=== PATIENT | male | born 1985 | race Two or more races ===

== ENCOUNTER 2020-02-09 14:38 | Emergency (ER) | payer OTHER ==
[2020-02-09 14:45] VITALS: TEMP 97.7
[2020-02-09] MEDS ORDERED: KETOROLAC 15 MG/ML 1 ML VIAL IM STA (15:09)
[2020-02-09] MEDS ORDERED: HYDROcodone/APAP 5-325MG 1 EACH TAB PO STA (15:09)
--- NOTE | 2020-02-09 15:10 | ED ---
Recheck HPI - General Chief Complaint: Extremity Injury, Lower Stated Complaint: Fall,Foot injury Time Seen by Provider: 02/09/20 14:53 Source: patient, RN notes reviewed, old records reviewed Mode of arrival: wheelchair Limitations: no limitations - History of Present Illness Initial Comments: This is a 34-year-old male DF for evaluation regards to significant right ankle pain. Seen in ER yesterday for similar complaint associated ankle sprain, patient comes in for worsening pain today worsening swelling. Original injury was jumping off a ladder landing on his right foot no other injuries noted. Patient was not and has not been able lay on the right lower extremity he is complaining of severe pain MD Complaint: other (Recheck of right ankle pain) -: days(s) Returns Today for: persistent/worsening pain related to initial visit Symptoms Since Prior Visit: worsening pain Associated Symptoms: none - Related Data Previous Rx's Medication Instructions Recorded HYDROcodone/APAP 5-325MG [[place] 5] 1 each PO Q4HR PRN #20 tab 04/23/15 Naproxen [Naprosyn] 500 mg PO Q12HR PRN #20 tab 04/23/15 Penicillin V Potassium [Pen Vee K] 500 mg PO QID #28 tab 04/23/15 Allergies Allergy/AdvReac Type Severity Reaction Status Date / Time No Known Allergies Allergy Verified 02/09/20 14:45 Review of Systems ROS Statement: Those systems with pertinent positive or pertinent negative responses have been documented in the HPI. ROS Other: All systems not noted in ROS Statement are negative. Past Medical History Past Medical History: No Reported History Additional Past Medical History / Comment(s): chronic back and neck pain History of Any Multi-Drug Resistant Organisms: None Reported Past Surgical History: No Surgical Hx Reported Additional Past Surgical History / Comment(s): jaw surgery Past Psychological History: No Psychological Hx Reported Smoking Status: Current every day smoker Past Alcohol Use History: Occasional Past Drug Use History: Marijuana General Exam Limitations: no limitations General appearance: alert, in no apparent distress Head exam: Present: atraumatic, normocephalic, normal inspection Eye exam: Present: normal appearance, PERRL, EOMI. Absent: scleral icterus, conjunctival injection, periorbital swelling ENT exam: Present: normal exam, mucous membranes moist Neck exam: Present: normal inspection. Absent: tenderness, meningismus, lymphadenopathy Respiratory exam: Present: normal lung sounds bilaterally. Absent: respiratory distress, wheezes, rales, rhonchi, stridor Cardiovascular Exam: Present: regular rate, normal rhythm, normal heart sounds. Absent: systolic murmur, diastolic murmur, rubs, gallop, clicks GI/Abdominal exam: Present: soft, normal bowel sounds. Absent: distended, tenderness, guarding, rebound, rigid Extremities exam: Present: other (Significant right ankle edema swelling displacement, deformity). Absent: tenderness, pedal edema, joint swelling, calf tenderness Back exam: Present: normal inspection Neurological exam: Present: alert, oriented X3, CN II-XII intact Psychiatric exam: Present: normal affect, normal mood Skin exam: Present: warm, dry, intact, normal color. Absent: rash Course Vital Signs 02/09/20 14:41 Temperature 97.7 F Pulse Rate 97 Respiratory 20 Rate Blood Pressure 135/68 O2 Sat by Pulse 99 Oximetry - Reevaluation(s) Reevaluation #1: 02/09/20 16:27 medical records reviewed Reevaluation #2: 02/09/20 16:27 Patient has pain control Reevaluation #3: 02/09/20 16:27 Patient informed us findings and results need for transfer, he is agreeable - Consultations Consultation #1: Spoke with Dr. Sera Mercado TRANSFER, spoke with emergency department okay for transfer Medical Decision Making - Medical Decision Making 34 male DF with right talus fracture dislocated and displaced patient will be transferred for [facility] for treatment - EKG Data -: EKG Interpreted by Me (EKG is sinus rhythm 81 [place] 144 QRS 90 QTC 436) - Radiology Data Radiology results: report reviewed (X-rays of right lower extremity right ankle does show right talus fracture with displacement), image reviewed Disposition Clinical Impression: Fracture of right talus Disposition: OTHER INSTITUTION NOT DEFINED Condition: Fair Is patient prescribed a controlled substance at d/c from ED?: No Referrals: Roma Church MD [Primary Care Provider] - 1-2 days - Out of Hospital Transfer - Req. Specs Out of Hospital Transfer - Requested Specifics: Other Emergency Center ([facility])
--- NOTE | 2020-02-09 15:38 | XR ---
EXAMINATION TYPE: XR knee complete RT DATE OF EXAM: 02/09/2020 CLINICAL HISTORY: pain TECHNIQUE: Three views of the right knee are obtained. COMPARISON: None. FINDINGS: There is no acute fracture/dislocation. The tri-compartment joint spaces appear within no rmal limits. The overlying soft tissue appears unremarkable. IMPRESSION: There is no acute fracture or dislocation.ICD 10 NO FRACTURE, INITIAL EVALUATION
--- NOTE | 2020-02-09 15:40 | XR ---
EXAMINATION TYPE: XR ankle complete RT DATE OF EXAM: 02/09/2020 CLINICAL HISTORY: Pain since fall injury yesterday. TECHNIQUE: Frontal, lateral and oblique images of the right ankle and foot are obtained. COMPARISON: None. FINDINGS: There is displaced comminuted fracture through the talus with asymmetric medial mortise wi dening. The talar dome is inferiorly displaced relative to the proximal to mid aspect of the superior talus. The distal tibia and fibula are intact. Moderate diffuse subcutaneous edema and soft tissue swelling is noted. IMPRESSION: There is acute displaced comminuted fracture involving the posterior one half of the ester us with mortise disruption. (Initial encounter closed type posttraumatic fracture)
--- NOTE | 2020-02-09 15:42 | XR ---
EXAMINATION TYPE: XR foot complete RT DATE OF EXAM: 02/09/2020 CLINICAL HISTORY: pain TECHNIQUE: Frontal, lateral and oblique images of the right foot are obtained. COMPARISON: None. FINDINGS: There is no acute fracture/dislocation evident of the right foot. See report of the ankle for talar fracture. The joint spaces appear within normal limits. The overlying soft tissue appears unremarkable. IMPRESSION: There is no acute fracture or dislocation of the right foot.See report of the ankle for talar fractur e.
[2020-02-09] MEDS ORDERED: MORPHINE SULFATE 4 MG/ML SYRINGE IV STA (16:05)
[2020-02-09] MEDS ORDERED: SODIUM CHLORIDE 0.9% 1,000 ML IV STA (16:05)
--- NOTE | 2020-02-09 16:33 | XR ---
EXAMINATION TYPE: XR chest 2V DATE OF EXAM: 02/09/2020 COMPARISON: NONE HISTORY: Weakness. TECHNIQUE: Frontal and lateral views of the chest are obtained. FINDINGS: There is no focal air space opacity, pleural effusion, or pneumothorax seen. The cardiac silhouette size is within normal limits. The osseous structures are intact. IMPRESSION: No acute cardiopulmonary process.
[2020-02-09 16:52] LABS: Basophils % (A) 0 %; Eosinophils # (A) 0.3 k/uL (0-0.7); Eosinophils % (A) 3 %; HCT 40.9 % (39.0-53.0); HGB 13.5 gm/dL (13.0-17.5); Lymphocytes # (A) 1.5 k/uL (1.0-4.8); Lymphocytes % (A) 13 %; MCH 30.4 pg (25.0-35.0); MCHC 33.1 g/dL (31.0-37.0); MCV 91.9 fL (80.0-100.0); Mean Platelet Volume 6.4; Monocytes # (A) 0.8 k/uL (0-1.0); Monocytes % (A) 7 %; Neutrophils # (A) 8.3 k/uL (1.3-7.7); Neutrophils % (A) 75 %; Platelet Count 257 k/uL (150-450); RBC 4.45 m/uL (4.30-5.90); RDW 13.1 % (11.5-15.5); WBC 11.1 k/uL (3.8-10.6)
[2020-02-09 17:03] LABS: INR 0.9 (<1.2); Partial Thromboplastin Time 22.9 sec (22.0-30.0); Prothrombin Time 9.5 sec (9.0-12.0)
[2020-02-09 17:13] LABS: ALT 15 U/L (4-49); AST 27 U/L (17-59); African American GFR (CKD) >90 (>60 ml/min/1.73 sqM); Albumin 3.5 g/dL (3.5-5.0); Alkaline Phosphatase 60 U/L (38-126); Anion Gap 2 mmol/L; Blood Urea Nitrogen 20 mg/dL (9-20); Calcium 9.2 mg/dL (8.4-10.2); Carbon Dioxide 26 mmol/L (22-30); Chloride 107 mmol/L (98-107); Creatine Kinase 548 U/L (55-170); Glucose 107 mg/dL (74-99); Magnesium 1.9 mg/dL (1.6-2.3); Non-African American GFR(CKD) >90 (>60 ml/min/1.73 sqM); Phosphorus 3.1 mg/dL (2.5-4.5); Potassium 4.4 mmol/L (3.5-5.1); Sodium 135 mmol/L (137-145); Total Bilirubin 0.3 mg/dL (0.2-1.3); Total Protein 5.9 g/dL (6.3-8.2)
[2020-02-09 17:29] VITALS: BP 132/89; PULSE 96; RESP 18
== END 2020-02-09 17:38 | disposition other institution (70) ==
LOC: EC 14:38
DX: S92.101D Unspecified fracture of right talus, subsequent encounter for fracture with routine healing (principal); F17.200 Nicotine dependence, unspecified, uncomplicated; W11.XXXD Fall on and from ladder, subsequent encounter; Y93.39 Activity, other involving climbing, rappelling and jumping off; Y92.89 Other specified places as the place of occurrence of the external cause
CPT/HCPCS: 36415; 93005; 80053; 82550; 83735; 84100; 85025; 85610; 85730; 73562; 73610; 73630; 71046; 99285; 96374; 96372; 96361; J2270; J1885

== ENCOUNTER 2025-01-13 14:10 | Emergency (ER) | payer OTHER ==
[2025-01-13 15:45] LABS: Basophils # (A) 0.06 10*3/uL (0.00-0.10); Basophils % (A) 0.5 %; Eosinophils # (A) 0.04 10*3/uL (0.04-0.35); Eosinophils % (A) 0.3 %; HCT 42.0 % (39.6-50.0); HGB 14.1 g/dL (13.0-17.0); Lymphocytes # (A) 0.99 10*3/uL (0.90-5.00); Lymphocytes % (A) 7.8 %; MCH 29.4 pg (27.0-32.0); MCHC 33.6 g/dL (32.0-37.0); MCV 87.5 fL (80.0-97.0); Monocytes # (A) 0.64 10*3/uL (0.20-1.00); Monocytes % (A) 5.1 %; Neutrophils # (A) 10.89 10*3/uL (1.80-7.70); Neutrophils % (A) 86.0 %; Platelet Count 308 10*3/uL (140-440); RBC 4.80 10*6/uL (4.40-5.60); RDW 13.5 % (11.5-14.5); WBC 12.66 10*3/uL (4.50-10.00)
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
[2025-01-13] MEDS: SODIUM CHLORIDE 0.9% 1,000 ML IV ONE (15:48)
[2025-01-13 16:01] LABS: ALT 18 U/L (4-49); AST 26 U/L (17-59); African American GFR (CKD) >90 (>60 ml/min/1.73 sqM); Albumin 3.9 g/dL (3.5-5.0); Alkaline Phosphatase 74 U/L (38-126); Anion Gap 7 mmol/L; Blood Urea Nitrogen 23 mg/dL (9-20); Calcium 9.7 mg/dL (8.4-10.2); Carbon Dioxide 25 mmol/L (22-30); Chloride 106 mmol/L (98-107); Glucose 105 mg/dL (74-99); Non-African American GFR(CKD) >90 (>60 ml/min/1.73 sqM); Potassium 4.2 mmol/L (3.5-5.1); Sodium 138 mmol/L (137-145); Total Protein 6.8 g/dL (6.3-8.2)
[2025-01-13 17:11] VITALS: BP 157/86; PULSE 76; RESP 20; TEMP 98.6
== END 2025-01-13 17:11 | disposition home or self-care (01) ==
LOC: EC 14:10
DX: E86.0 Dehydration (principal); F17.200 Nicotine dependence, unspecified, uncomplicated
CPT/HCPCS: 36415; 80053; 85025; 93005; 96360; 99284